=== PATIENT | male | born 1980 | race Native Hawaiian/Other Pacific Islander ===

== ENCOUNTER → 2017-01-10 | Outpatient (CLI) | payer BC ==
--- NOTE | 2017-01-10 18:44 | MR ---
EXAMINATION TYPE: MR thoracic spine wo con DATE OF EXAM: 01/10/2017 5:06 PM COMPARISON: 03/12/2014 HISTORY: Mid back pain Multiplanar MultiSpin echo imaging of the thoracic spine was performed. Disc spaces: No evidence for herniation protrusion or significant degenerative disc disease. Spinal canal: No evidence for canal stenosis. No intrinsic or extrinsic lesion. Thoracic spinal cord: Thoracic spinal cord is of normal caliber and signal. Paraspinal soft tissues: No evidence for paraspinal mass. No destructive lesions seen. Vertebral segments: No evidence for fracture or bony lesion. IMPRESSION: Negative study
--- NOTE | 2017-01-11 08:01 | XR ---
EXAMINATION TYPE: XR thoracic spine complete DATE OF EXAM: 01/10/2017 4:25 PM COMPARISON: NONE HISTORY: Thoracic pain TECHNIQUE: 3 views thoracic spine upright position FINDINGS: There is some degenerative disc change present T9-T10 and T8-9. There are 12 thoracic type vertebral bodies. The pedicles are intact. Spondylosis is present T8-9. Ve rtebral body heights are preserved. IMPRESSION: 1. Degenerative disc changes within the mid to lower thoracic spine at T8-9 and T9-10.
== END | disposition home or self-care (01) ==
LOC: RADMRIMAIN 16:07
PROVIDERS: ATTEND Psychiatry & Neurology Pain Medicine
DX: M47.814 Spondylosis without myelopathy or radiculopathy, thoracic region (principal)
CPT/HCPCS: 72072; 72146

== ENCOUNTER → 2019-05-16 | Outpatient (CLI) | payer BC | END | disposition home or self-care (01) | LOC: LABWHC1 16:03 | PROVIDERS: ATTEND Psychiatry & Neurology Pain Medicine | DX: E66.01 Morbid (severe) obesity due to excess calories (principal) | CPT/HCPCS: 36415; 93005 ==

== ENCOUNTER → 2020-03-03 | Outpatient (CLI) | payer BC, OTHER ==
--- NOTE | 2020-03-03 16:35 | P.HPBAR ---
Bariatric H&P - History & Physicial H&P Date: 03/03/20 History & Physicial: Visit/CC: Patient initial contact: Initial weight: Initial weight in pounds: Height: Initial BMI: Last weight: Current weight: Current weight in pounds: Current BMI: [place] body weight (based on NIH guidelines): Excess body weight loss: The patient is a 39 year-old M who presents for Bariatric Assessment. DATE OF SERVICE: 03/03/2020 CHIEF COMPLAINT: Panniculitis HISTORY OF PRESENT ILLNESS: Nash Rangel is a 39-year-old male who presents in for consultation for medical refractory panniculitis. He has long standing history of panniculitis for over 10 years. He reports painful skin ulcerations and breakdown along his jitendra. No reports of medical treatments and prescriptions. He has pulling sensation along the lower back from his pannus. He has troubles with grooming and hygiene as a result of his pannus. His pannus interferes with his activities of daily living including dressing, bathing, and hygiene. He presents for evaluation for a panniculectomy. He is referred by his neurologist Dr. Beard for severe back pain as well. He just lost another 10 pounds on Adipex. His highest weight is 398 pounds now improved from 2009. He has watched what he ate. 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 At her height of 5 foot 9 inches, his ideal body weight is 168 pounds. His highest weight was 398 pounds, BMI 58.9. Today he comes in weighing 265 pounds. He has lost 133 pounds lifetime. His body mass index is reduced from 58.9 to 39.3. Total percent excess weight loss is 58 %. PAST MEDICAL HISTORY: 1. Morbid obesity due to excess calories, BMI 58.9 2. Chronic lower back pain 3. Hypertension 4. Anxiety 5. Migraines PAST SURGICAL HISTORY: 1. Inguinal hernia repair MEDICATIONS: Home Medications Medication Instructions Recorded Confirmed Gabapentin [Neurontin] 400 mg PO TID 09/09/14 03/03/15 Hydrocodone/Acetaminophen [[place] 1 each PO TID PRN 09/09/14 03/03/15 10-325] Naproxen 500 mg PO DAILY 09/09/14 03/03/15 Previous Rx's Medication Instructions Recorded Hydrocodone/Acetaminophen [[place] 1 each PO Q6HR PRN #20 tab 03/03/15 5-325] Ibuprofen [Motrin] 600 mg PO Q8HR PRN #30 tab 03/03/15 Nystatin 100,000 Unit/gm Powd 1 applic TOPICAL BID #60 powder 03/03/20 [Mycostatin Powder] ALLERGIES: Denies. SOCIAL HISTORY: No past tobacco user. FAMILY HISTORY: Pertinent for morbid obesity. REVIEW OF SYSTEMS: MUSCULOSKELETAL: Reports severe lower back pain from weight of pannus. GASTROINTESTINAL: No reports gastroesophageal reflux disease with Starks's disease. No reports of dumping syndrome. PSYCH: History of anxiety. No suicidal ideation. CONSTITUTIONAL: At her height of 5 foot 9 inches, his ideal body weight is 168 pounds. His highest weight was 398 pounds, BMI 58.9. Today he comes in weighing 265 pounds. He has lost 133 pounds lifetime. His body mass index is reduced from 58.9 to 39.3. Total percent excess weight loss is 58 %. CARDIOVASCULAR: Denies any active hypertensive medications or medications for dyslipidemia. HEENT: No dysphagia. No troubles with vision or hearing. Wears glasses. HEMATOLOGIC: No reports of easy bruising or bleeding. ENDOCRINE: No diabetes. No current thyroid disorder. CARDIOVASCULAR: Denies any heart attack or recent chest pain. RESPIRATORY: Denies obstructive sleep apnea. No reports of asthma. NEURO: Denies any stroke or seizure disorders. Has chronic pain. History of migraines. SKIN: Chronic panniculitis. No skin cancer. PHYSICAL EXAM: VITAL SIGNS: 5 foot 9, 265 pounds. Body mass index 39.3 Vital Signs Temp 98.1 F 03/03/20 16:35 Pulse 49 L 03/03/20 16:35 Resp BP 118/69 03/03/20 16:35 Pulse Ox GENERAL: Well-developed female in no acute distress. ABDOMEN: Pannus over 10+ pounds. Hyperemia consistent moderate panniculitis. Soft, non-distended. HEENT: Hears conversational speech. Moist buccal mucosa. Extraocular movements were grossly intact. No nasal drainage. NECK: Supple without lymphadenopathy. CHEST: Unlabored respirations, equal bilateral excursions. CARDIOVASCULAR: Regular rate and rhythm. 2+ radial pulses. MUSCULOSKELETAL: No clubbing cyanosis or edema. NEURO: No focal or lateralizing signs. Cranial nerves II-12 grossly intact. PSYCH: Appropriate affect. Alert and oriented to person, place, and time. SKIN: Well perfused. Good skin turgor. Moderate pannus. ASSESSMENT: 1. Morbid obesity due to excess calories, BMI 58.9 2. Chronic lower back pain 3. Hypertension 4. Anxiety 5. Migraines PLAN: 1. Will needs pictures for panniculitis. 2. He comes in with 266 pounds from 5'9 height and comorbidities. Bariatric procedures were described for additional weight loss. Recommend weight loss evaluation as he has hypertension. 3. He has not been treated for panniculitis. Recommend Nystatin powder which is prescribed. Past Medical History Past Medical History: Hypertension Additional Past Medical History / Comment(s): MIGRAINE HEADACHE History of Any Multi-Drug Resistant Organisms: None Reported Past Surgical History: Hernia Repair Additional Past Surgical History / Comment(s): testicular surg Past Anesthesia/Blood Transfusion Reactions: No Reported Reaction Past Psychological History: Anxiety Additional Psychological History / Comment(s): HISTORY OF PANIC ATTACKS Smoking Status: Never smoker Past Alcohol Use History: None Reported Past Drug Use History: None Reported Bariatric Checklist Checklist: Plan: Checklist: EGD: 1. Hiatal hernia: 2. H. Pylori: HgbA1c: Vitamin D: Smoking: Never smoker Primary care physician referral: Psychiatry clearance: Cardiology clearance: Sleep study: Diet journal: VTE risk score: VTE risk level: Rehab needs at discharge:
[2020-03-03 16:38] VITALS: BP 118/69; PULSE 49; TEMP 98.1; BMI 39.2
== END | disposition home or self-care (01) ==
LOC: BARWHC3 15:57
PROVIDERS: ATTEND Surgery Plastic and Reconstructive Surgery
DX: E66.01 Morbid (severe) obesity due to excess calories (principal); Z68.43 Body mass index [BMI] 50.0-59.9, adult; I10 Essential (primary) hypertension; G89.29 Other chronic pain; M54.5 Low back pain; F41.9 Anxiety disorder, unspecified; G43.909 Migraine, unspecified, not intractable, without status migrainosus
CPT/HCPCS: 99211

== ENCOUNTER → 2020-07-28 | Outpatient (CLI) | payer OTHER ==
[2020-07-28 15:19] VITALS: BP 154/87; PULSE 102; RESP 16; TEMP 98.3; BMI 44.1
--- NOTE | 2020-07-28 16:04 | P.HPBAR ---
Bariatric H&P - History & Physicial H&P Date: 07/28/20 History & Physicial: Visit/CC: working on criteria Patient initial contact: Initial weight: 135.624 kg Initial weight in pounds: 299.00 Height: 5 ft 9 in Initial BMI: 44.1 Last weight: Current weight: 135.624 kg Current weight in pounds: 299.00 Current BMI: 44.1 [place] body weight (based on NIH guidelines): 72.575 kg Excess body weight loss: 0.0% The patient is a 40 year-old M who presents for Bariatric Assessment. DATE OF SERVICE: 07/28/2020 CHIEF COMPLAINT: Morbid obesity HISTORY OF PRESENT ILLNESS: Nash Rangel is a 40-year-old male who comes in with lifelong morbid obesity. He has tried weight loss on his own where his highest weight was 398 pounds. He has been able to maintain 100 pound weight loss on his own. In fact, he is on Adipex. He comes in looking into the sleeve gastrectomy. He has gained 30 pounds in 4 months. He is on medical supervised weight loss. He comes from family history of morbid obesity. At her height of 5 foot 9 inches, his ideal body weight is 168 pounds. His highest weight was 398 pounds, BMI 58.9. Today he comes in weighing 298 pounds from 265 pounds, 5 months ago. He has gained 33 pounds in 5 months. Lifetime weight loss is 100 pounds. His body mass index is reduced from 58.9 to 44.2. Total percent excess weight loss is 43 % PAST MEDICAL HISTORY: 1. Morbid obesity due to excess calories, BMI 58.9 2. Chronic lower back pain 3. Hypertension 4. Anxiety 5. Migraines PAST SURGICAL HISTORY: 1. Inguinal hernia repair MEDICATIONS: Home Medications Medication Instructions Recorded Confirmed Gabapentin [Neurontin] 400 mg PO TID 09/09/14 03/03/15 Hydrocodone/Acetaminophen [[place] 1 each PO TID PRN 09/09/14 03/03/15 10-325] Naproxen 500 mg PO DAILY 09/09/14 03/03/15 Previous Rx's Medication Instructions Recorded Hydrocodone/Acetaminophen [[place] 1 each PO Q6HR PRN #20 tab 03/03/15 5-325] Ibuprofen [Motrin] 600 mg PO Q8HR PRN #30 tab 03/03/15 Nystatin 100,000 Unit/gm Powd 1 applic TOPICAL BID #60 powder 03/03/20 [Mycostatin Powder] ALLERGIES: Denies. SOCIAL HISTORY: No past tobacco user. FAMILY HISTORY: Pertinent for morbid obesity. REVIEW OF SYSTEMS: MUSCULOSKELETAL: Reports severe lower back pain from weight of pannus. GASTROINTESTINAL: No reports gastroesophageal reflux disease. No reports of dumping syndrome. PSYCH: History of anxiety. No suicidal ideation. CONSTITUTIONAL: At her height of 5 foot 9 inches, his ideal body weight is 168 pounds. His highest weight was 398 pounds, BMI 58.9. CARDIOVASCULAR: Denies any active hypertensive medications or medications for dyslipidemia. HEENT: No dysphagia. No troubles with vision or hearing. Wears glasses. HEMATOLOGIC: No reports of easy bruising or bleeding. ENDOCRINE: No diabetes. No current thyroid disorder. CARDIOVASCULAR: Denies any heart attack or recent chest pain. RESPIRATORY: Denies obstructive sleep apnea. No reports of asthma. NEURO: Denies any stroke or seizure disorders. Has chronic pain. History of migraines. SKIN: Chronic panniculitis. No skin cancer. PHYSICAL EXAM: VITAL SIGNS: 5 foot 9, 298 pounds. Body mass index 44.2 Vital Signs Temp 98.3 F 07/28/20 15:16 Pulse 102 H 07/28/20 15:16 Resp 16 07/28/20 15:16 BP 154/87 07/28/20 15:16 Pulse Ox GENERAL: Well-developed female in no acute distress. ABDOMEN: Pannus over 10+ pounds. Hyperemia consistent moderate panniculitis. Soft, non-distended. HEENT: Hears conversational speech. Moist buccal mucosa. Extraocular movements were grossly intact. No nasal drainage. NECK: Supple without lymphadenopathy. CHEST: Unlabored respirations, equal bilateral excursions. CARDIOVASCULAR: Regular rate and rhythm. 2+ radial pulses. MUSCULOSKELETAL: No clubbing cyanosis or edema. NEURO: No focal or lateralizing signs. Cranial nerves II-12 grossly intact. PSYCH: Appropriate affect. Alert and oriented to person, place, and time. SKIN: Well perfused. Good skin turgor. Moderate pannus. ASSESSMENT: 1. Morbid obesity due to excess calories, BMI 58.9 to 44.2 2. Chronic lower back pain 3. Hypertension 4. Anxiety 5. Migraines PLAN: 1. Surgical options including a band, gastric bypass, sleeve gastrectomy were described in detail. Alternatives such as gastric balloon including duodenal switch were described. She is looking into the gastric bypass. 2. The [place] bariatric surgical collaborative data and outcomes calculator were described with surgical options. 3. Recommend a bariatric metabolic panel to evaluate for micro- including macronutrient deficiencies. 4. For history of daytime somnolence, recommend evaluation and treatment for sleep apnea. 5. Dietary surveillance and counseling was reviewed. Increased protein intake over 65 grams daily advised. 6. Will need cardiac risk assessment. 7. Recommend medical risk assessment. 8. Psych assessment per insurance guidelines. 9. Recommend upper endoscopy. 10. Recommend 12-lead EKG. 11. Recommend esophagram Past Medical History Past Medical History: Hypertension Additional Past Medical History / Comment(s): MIGRAINE HEADACHE History of Any Multi-Drug Resistant Organisms: None Reported Past Surgical History: Hernia Repair Additional Past Surgical History / Comment(s): testicular surg Past Anesthesia/Blood Transfusion Reactions: No Reported Reaction Past Psychological History: Anxiety Additional Psychological History / Comment(s): HISTORY OF PANIC ATTACKS Smoking Status: Never smoker Past Alcohol Use History: None Reported Past Drug Use History: None Reported Surgical - Exam Vital Signs Temp Pulse Resp BP 98.3 F 102 H 16 154/87 07/28/20 15:16 07/28/20 15:16 07/28/20 15:16 07/28/20 15:16 Bariatric Checklist Checklist: Plan: Checklist: EGD: 1. Hiatal hernia: 2. H. Pylori: HgbA1c: Vitamin D: Smoking: Never smoker Primary care physician referral: dr rust Psychiatry clearance: Cardiology clearance: Sleep study: Diet journal: VTE risk score: VTE risk level: Rehab needs at discharge:
== END | disposition home or self-care (01) ==
LOC: BARWHC3 14:35
PROVIDERS: ATTEND Surgery Plastic and Reconstructive Surgery
DX: E66.01 Morbid (severe) obesity due to excess calories (principal); I10 Essential (primary) hypertension; F41.9 Anxiety disorder, unspecified; G89.29 Other chronic pain; M54.5 Low back pain; G43.909 Migraine, unspecified, not intractable, without status migrainosus; Z79.891 Long term (current) use of opiate analgesic; Z79.899 Other long term (current) drug therapy; Z68.43 Body mass index [BMI] 50.0-59.9, adult
CPT/HCPCS: 99211

== ENCOUNTER → 2020-08-03 | Outpatient (CLI) | payer OTHER ==
[2020-08-03 10:22] LABS: HCT 40.6 % (39.0-53.0); HGB 13.5 gm/dL (13.0-17.5); MCHC 33.3 g/dL (31.0-37.0); MCV 84.1 fL (80.0-100.0); Mean Platelet Volume 8.5; Platelet Count 200 k/uL (150-450); RBC 4.83 m/uL (4.30-5.90); RDW 13.4 % (11.5-15.5); WBC 4.7 k/uL (3.8-10.6)
[2020-08-03 15:23] LABS: Hemoglobin A1C 5.4 % (4.0-6.0)
[2020-08-03 15:34] LABS: % Iron Saturation 20.51 (15.00-50.00); African American GFR (CKD) 109.4 (60.0-200.0); Albumin 4.5 g/dL (3.80-4.90); Albumin/Globulin Ratio 2.14 (1.60-3.17); Anion Gap 8.2 mmol/L (4.00-12.00); Calcium 9.2 mg/dL (8.7-10.3); Carbon Dioxide 25.8 mmol/L (21.6-31.8); Chol/HDL Ratio 3.2; Globulin 2.1 g/dL (1.6-3.3); LDL Cholesterol,Calculated 121.4 mg/dL (0.0-131.0); Non-African American GFR(CKD) 94.4 (60.0-200.0); Phosphorus 3.2 mg/dL (2.4-5.1); Potassium 4.7 mmol/L (3.5-5.5); Total Bilirubin 0.5 mg/dL (0.3-1.2); Total Protein 6.6 g/dL (6.2-8.2); VLDL Calculation 23.6 mg/dL (5.00-40.00)
[2020-08-03 15:41] LABS: Ferritin 67.2 ng/mL (22.0-322.0)
[2020-08-03 15:53] LABS: Folate, Serum 19.2 ng/mL
[2020-08-03 18:24] LABS: INR 0.98 (0.90-1.11); Partial Thromboplastin Time 28.1 sec (23.5-31.0); Prothrombin Time 10.6 sec (9.9-11.9)
[2020-08-04 13:57] LABS: Zinc, Serum 88 ug/dL (60-130)
[2020-08-05 07:36] LABS: Vitamin A 51 ug/dL (38-106)
[2020-08-05 12:36] LABS: Vit B1(Thiamine) 72 ug/L (38-122)
== END | disposition home or self-care (01) ==
LOC: LABWHC1 09:01
PROVIDERS: ATTEND Surgery Plastic and Reconstructive Surgery
DX: E89.1 Postprocedural hypoinsulinemia (principal); D50.8 Other iron deficiency anemias; K90.89 Other intestinal malabsorption; E55.9 Vitamin D deficiency, unspecified; K74.1 Hepatic sclerosis; N19 Unspecified kidney failure; K50.90 Crohn's disease, unspecified, without complications; E66.01 Morbid (severe) obesity due to excess calories
CPT/HCPCS: 36415; 80053; 80061; 82306; 82525; 82607; 82728; 82746; 83036; 83540; 83550; 83735; 83970; 84100; 84134; 84255; 84425; 84443; 84590; 84630; 85027; 85610; 85730; 93005

== ENCOUNTER 2020-08-18 08:08 | Day surgery (SDC) | payer OTHER ==
[2020-08-13 14:37] VITALS: BMI 43.9
[~2020-08-18 08:08] MED LIST: LACTATED RINGERS 1,000 ML IV SCH; MIDAZOLAM 2 MG/2 ML VIAL IV PRN; ONDANSETRON 4 MG/2 ML VIAL IVP PRN
[2020-08-18] MEDS ORDERED: LIDOCAINE 1% (10MG/ML) FOR IV START INTRADERMA ONE (08:35)
--- NOTE | 2020-08-18 08:45 | P.GSHP ---
History of Present Illness H&P Date: 08/18/20 CHIEF COMPLAINT: GERD HISTORY OF PRESENT ILLNESS: The patient is a 40-year-old male who presents reports gastroesophageal reflux disease. Upper endoscopy was offered for further evaluation and management. PAST MEDICAL HISTORY: Please see list. PAST SURGICAL HISTORY: Please see list. MEDICATIONS: Please see list. ALLERGIES: Please see list. SOCIAL HISTORY: No illicit drug use FAMILY HISTORY: No reports of Crohn disease or ulcerative colitis. REVIEW OF ORGAN SYSTEMS: CONSTITUTIONAL: No reports of fevers or chills. GI: Denies any blood in stools or constipation. PHYSICAL EXAM: VITAL SIGNS: Stable GENERAL: Well-developed and pleasant in no acute distress. HEENT: No scleral icterus. Extraocular movements grossly intact. Moist buccal mucosa. NECK: Supple without lymphadenopathy. CHEST: Unlabored respirations. Equal bilateral excursions. CARDIOVASCULAR: Regular rate and rhythm. Distal 2+ pulses. ABDOMEN: Soft, nondistended. MUSCULOSKELETAL: No clubbing, cyanosis, or edema. ASSESSMENT: 1. Gastroesophageal reflux disease PLAN: 1. Recommend proceeding with an upper endoscopy Past Medical History Past Medical History: Osteoarthritis (OA) Additional Past Medical History / Comment(s): MIGRAINE HEADACHE, back injury 2010, chronic back pain. History of Any Multi-Drug Resistant Organisms: None Reported Past Surgical History: Hernia Repair Additional Past Surgical History / Comment(s): Testicular surgery. Past Anesthesia/Blood Transfusion Reactions: No Reported Reaction Past Psychological History: Anxiety Additional Psychological History / Comment(s): HISTORY OF PANIC ATTACKS. Smoking Status: Never smoker Past Alcohol Use History: None Reported Past Drug Use History: None Reported - Past Family History Mother Family Medical History: No Reported History Medications and Allergies Home Medications Medication Instructions Recorded Confirmed Type Gabapentin [Neurontin] 400 mg PO TID 09/09/14 08/13/20 History Ibuprofen [Motrin Ib] 200 - 400 mg PO BID 08/13/20 08/13/20 History Phentermine HCl [Adipex-P] 37.5 mg PO DAILY 08/13/20 08/13/20 History oxyCODONE-APAP 5-325MG [Percocet 1 tab PO TID 08/13/20 08/13/20 History 5-325 mg] Allergies Allergy/AdvReac Type Severity Reaction Status Date / Time No Known Allergies Allergy Verified 08/13/20 14:24
[2020-08-18 08:47] VITALS: TEMP 98.4
[2020-08-18] MEDS ORDERED: LIDOCAINE 1% INJ 10MG/ML (20 ML MDV) ONE (09:05)
[2020-08-18] MEDS ORDERED: PROPOFOL 10 MG/ML 20 ML VIAL IV ONE (09:05)
[2020-08-18] MEDS ORDERED: GLYCOPYRROLATE 0.2 MG/ML 2 ML VIAL ONE (09:05)
--- NOTE | 2020-08-18 09:21 | P.PCN ---
Date of Procedure: 08/18/20 Description of Procedure: PREOPERATIVE DIAGNOSIS: Gastroesophageal reflux disease. Morbid obesity. POSTOPERATIVE DIAGNOSIS: Morbid obesity. Gastritis. Gastroesophageal reflux disease. OPERATION: Esophagogastroduodenoscopy with biopsies along antrum. SURGEON: Guera Madrid MD ANESTHESIA: MAC. INDICATIONS: The patient is a 40-year-old male who presents with a history of reflux disease. Benefits and risks of the procedure were described. Informed consent was obtained. DESCRIPTION: The patient was brought into the endoscopy suite and laid in the left lateral decubitus position. An Olympus gastroscope was passed along the posterior oropharynx down to the distal esophagus where the squamocolumnar junction was encountered at 40 cm from the incisors. The stomach was entered and no bile reflux was found. Additional findings are listed below. Biopsies with cold forceps were obtained of the antrum. The first through third portion of the duodenum was examined and unremarkable. Retroflexion of the scope confirmed Hill grade 3 lower esophageal valve. The squamocolumnar junction demonstrated LA grade A erosive esophagitis. The stomach was desufflated. The patient tolerated the procedure well.S FINDINGS: Squamocolumnar junction 40 cm from the incisors. Diaphragmatic hiatus at 40 cm. Hill grade 3 lower esophageal valve. LA grade A erosive esophagitis. No active duodenitis. Chronic gastritis RECOMMENDATIONS: Upper endoscopy as needed. Plan - Discharge Summary Discharge Rx Participant: No New Discharge Prescriptions: Continue Gabapentin [Neurontin] 400 mg PO TID Phentermine HCl [Adipex-P] 37.5 mg PO DAILY oxyCODONE-APAP 5-325MG [Percocet 5-325 mg] 1 tab PO TID Ibuprofen [Motrin Ib] 200 - 400 mg PO BID Discharge Medication List Gabapentin [Neurontin] 400 mg PO TID 09/09/14 [History] Ibuprofen [Motrin Ib] 200 - 400 mg PO BID 08/13/20 [History] Phentermine HCl [Adipex-P] 37.5 mg PO DAILY 08/13/20 [History] oxyCODONE-APAP 5-325MG [Percocet 5-325 mg] 1 tab PO TID 08/13/20 [History] [facility] [place] [place] [facility] [place] [facility] Patient Instructions/Handouts: Diet for Stomach Ulcers and Gastritis (ED), Gastritis (DC) Discharge Disposition: HOME SELF-CARE
[2020-08-18 09:26] VITALS: RESP 16
[2020-08-18 09:37] VITALS: PULSE 73
[2020-08-18 09:47] VITALS: BP 122/80
== END 2020-08-18 09:55 | disposition home or self-care (01) ==
LOC: ORWHC2ENDO 08:08
PROVIDERS: ATTEND Surgery Plastic and Reconstructive Surgery
DX: K29.50 Unspecified chronic gastritis without bleeding (principal); K21.00 Gastro-esophageal reflux disease with esophagitis, without bleeding; K22.10 Ulcer of esophagus without bleeding; G43.909 Migraine, unspecified, not intractable, without status migrainosus; F41.9 Anxiety disorder, unspecified; M19.90 Unspecified osteoarthritis, unspecified site; G89.29 Other chronic pain; E66.01 Morbid (severe) obesity due to excess calories; M54.9 Dorsalgia, unspecified; Z79.1 Long term (current) use of non-steroidal anti-inflammatories (NSAID); Z79.899 Other long term (current) drug therapy; Z98.890 Other specified postprocedural states; Z68.41 Body mass index [BMI] 40.0-44.9, adult
CPT/HCPCS: 88305; 43239; J2001; J2704

== ENCOUNTER → 2020-09-01 | Outpatient (CLI) | payer OTHER ==
[2020-09-01 13:05] VITALS: BP 135/80; PULSE 114; RESP 18; TEMP 98.8
--- NOTE | 2020-09-01 14:05 | P.PN ---
Subjective Progress Note Date: 09/01/20 DATE OF SERVICE: 09/01/2020 CHIEF COMPLAINT: Morbid obesity HISTORY OF PRESENT ILLNESS: Nash Rangel is a 40-year-old male who comes in with lifelong morbid obesity. He has developed essential hypertension and chronic lower back pain as a result of his morbid obesity. He comes in following an upper endoscopy. He is under medical supervised weight loss. He has weight gain. He is in his 5th month of medical supervised weight loss. At her height of 5 foot 9 inches, his ideal body weight is 168 pounds. His highest weight was 398 pounds, BMI 58.9. Today he comes in weighing 303 pounds from 298 pounds, 1 month ago. He has gained 5 pounds in 1 month. Lifetime weight loss is 95 pounds. His body mass index is reduced from 58.9 to 44.9. Total percent excess weight loss is 41 % PAST MEDICAL HISTORY: 1. Morbid obesity due to excess calories, BMI 58.9 2. Chronic lower back pain 3. Hypertension 4. Anxiety 5. Migraines PAST SURGICAL HISTORY: 1. Inguinal hernia repair MEDICATIONS: Home Medications Medication Instructions Recorded Confirmed Gabapentin [Neurontin] 400 mg PO TID 09/09/14 03/03/15 Hydrocodone/Acetaminophen [[place] 1 each PO TID PRN 09/09/14 03/03/15 10-325] Naproxen 500 mg PO DAILY 09/09/14 03/03/15 Previous Rx's Medication Instructions Recorded Hydrocodone/Acetaminophen [[place] 1 each PO Q6HR PRN #20 tab 03/03/15 5-325] Ibuprofen [Motrin] 600 mg PO Q8HR PRN #30 tab 03/03/15 Nystatin 100,000 Unit/gm Powd 1 applic TOPICAL BID #60 powder 03/03/20 [Mycostatin Powder] ALLERGIES: Denies. SOCIAL HISTORY: No past tobacco user. FAMILY HISTORY: Pertinent for morbid obesity. REVIEW OF SYSTEMS: MUSCULOSKELETAL: Reports severe lower back pain from weight of pannus. GASTROINTESTINAL: No reports gastroesophageal reflux disease. No reports of dumping syndrome. PSYCH: History of anxiety. No suicidal ideation. CONSTITUTIONAL: At her height of 5 foot 9 inches, his ideal body weight is 168 pounds. His highest weight was 398 pounds, BMI 58.9. CARDIOVASCULAR: Denies any active hypertensive medications or medications for dyslipidemia. HEENT: No dysphagia. No troubles with vision or hearing. Wears glasses. HEMATOLOGIC: No reports of easy bruising or bleeding. ENDOCRINE: No diabetes. No current thyroid disorder. CARDIOVASCULAR: Denies any heart attack or recent chest pain. RESPIRATORY: Denies obstructive sleep apnea. No reports of asthma. NEURO: Denies any stroke or seizure disorders. Has chronic pain. History of migraines. SKIN: Chronic panniculitis. No skin cancer. PHYSICAL EXAM: VITAL SIGNS: 5 foot 9, 303 pounds. Body mass index 44.9 Vital Signs Temp 98.8 F 09/01/20 12:59 Pulse 114 H 09/01/20 12:59 Resp 18 09/01/20 12:59 BP 135/80 09/01/20 12:59 Pulse Ox GENERAL: Well-developed female in no acute distress. ABDOMEN: Soft, non-distended. Protuberant HEENT: Hears conversational speech. Moist buccal mucosa. Extraocular movements were grossly intact. No nasal drainage. NECK: Supple without lymphadenopathy. CHEST: Unlabored respirations, equal bilateral excursions. CARDIOVASCULAR: Tachycardic. 2+ radial pulses. MUSCULOSKELETAL: No clubbing cyanosis or edema. NEURO: No focal or lateralizing signs. Cranial nerves II-12 grossly intact. PSYCH: Appropriate affect. Alert and oriented to person, place, and time. SKIN: Well perfused. Good skin turgor. Moderate pannus. LABS: Reviewed. Iron is low. AST and ALT is elevated. Total cholesterol is elevated. EKG: Left ventricular hypertrophy, abnormal EGD FINDINGS: Squamocolumnar junction 40 cm from the incisors. Diaphragmatic hiatus at 40 cm. Hill grade 3 lower esophageal valve. LA grade A erosive esophagitis. No active duodenitis. Chronic gastritis Final Pathologic Diagnosis GASTRIC ANTRUM, BIOPSY: Mild chronic gastritis. Helicobacter pylori organisms are not identified on routine H+E sections. ASSESSMENT: 1. Morbid obesity due to excess calories, BMI 58.9 to 44.9 2. Chronic lower back pain 3. Hypertension 4. Anxiety 5. Migraines 6. Vitamin D deficiency. 7. Iron deficiency 8. Elevated liver enzymes 9. Hypercholesterolemia 10. Abnormal EKG 11. Gastroesophageal reflux disease with esophagitis 12. Chronic gastritis. PLAN: 1. Recommend food diary journal. 2. Vitamin D 50,000 units weekly prescribed. 3. Recommend ultrasound of the liver for elevated liver enzymes 4. Recommend cardiology risk assessment for abnormal EKG Objective - Vital Signs Vital signs: Vital Signs Temp 98.8 F 09/01/20 12:59 Pulse 114 H 09/01/20 12:59 Resp 18 09/01/20 12:59 BP 135/80 09/01/20 12:59 Pulse Ox Intake & Output 08/31/20 09/01/20 09/01/20 18:59 06:59 18:59 Weight 137.892 kg
== END | disposition home or self-care (01) ==
LOC: BARWHC3 12:41
PROVIDERS: ATTEND Surgery Plastic and Reconstructive Surgery
DX: E66.01 Morbid (severe) obesity due to excess calories (principal); G89.29 Other chronic pain; M54.5 Low back pain; I10 Essential (primary) hypertension; F41.9 Anxiety disorder, unspecified; G43.909 Migraine, unspecified, not intractable, without status migrainosus; E55.9 Vitamin D deficiency, unspecified; K29.50 Unspecified chronic gastritis without bleeding; K21.00 Gastro-esophageal reflux disease with esophagitis, without bleeding; R94.31 Abnormal electrocardiogram [ECG] [EKG]; E78.00 Pure hypercholesterolemia, unspecified; R74.8 Abnormal levels of other serum enzymes; E61.1 Iron deficiency; Z68.41 Body mass index [BMI] 40.0-44.9, adult; Z79.1 Long term (current) use of non-steroidal anti-inflammatories (NSAID); Z79.899 Other long term (current) drug therapy; Z79.891 Long term (current) use of opiate analgesic
CPT/HCPCS: 99211

== ENCOUNTER → 2021-01-25 | Outpatient (CLI) | payer OTHER ==
[2021-01-25 17:09] LABS: HCT 41.8 % (39.6-50.0); HGB 13.8 g/dL (13.0-17.0); MCH 27.4 pg (27.0-32.0); MCV 83.1 fL (80.0-97.0); Mean Platelet Volume 12.2 fL (9.5-12.2); Platelet Count 188 X 10*3/uL (140-440); RBC 5.03 X 10*6/uL (4.40-5.60); RDW 13.5 % (11.5-14.5); WBC 5.39 X 10*3/uL (4.50-10.00)
[2021-01-25 18:47] LABS: Hemoglobin A1C 5.4 % (4.0-6.0)
[2021-01-26 02:05] LABS: T4, Free (Free Thyroxine) 1.2 ng/dL (0.80-1.80)
[2021-01-26 03:31] LABS: % Iron Saturation 15.61 (15.00-50.00); African American GFR (CKD) 124.3 (60.0-200.0); Albumin 4.4 g/dL (3.80-4.90); BUN/Creat Ratio 14.44 Ratio (12.00-20.00); Globulin 2.2 g/dL (1.6-3.3); Non-African American GFR(CKD) 107.2 (60.0-200.0); Potassium 4.5 mmol/L (3.5-5.5); Total Bilirubin 0.7 mg/dL (0.2-1.2); Total Protein 6.6 g/dL (6.2-8.2)
== END | disposition home or self-care (01) ==
LOC: LABWHC1 09:17
PROVIDERS: ATTEND Psychiatry & Neurology Pain Medicine
DX: Z01.818 Encounter for other preprocedural examination (principal); I51.7 Cardiomegaly; R94.31 Abnormal electrocardiogram [ECG] [EKG]
CPT/HCPCS: 36415; 80053; 82550; 82728; 83036; 83540; 83550; 84439; 84443; 84466; 84481; 85027; 93005

== ENCOUNTER → 2021-02-15 | Outpatient (CLI) | payer OTHER ==
--- NOTE | 2021-02-15 11:45 | XR ---
EXAMINATION TYPE: XR chest 2V DATE OF EXAM: 02/15/2021 COMPARISON: 08/31/2013 HISTORY: SHELLY since Covid in August TECHNIQUE: Frontal and lateral views of the chest are obtained. FINDINGS: Heart size is within normal limits. Low lung volumes. Minimal right basilar linear opaciti es suggestive of atelectasis or scarring. No focal consolidation, pneumothorax or pleural effusion. D egenerative changes of the thoracic spine are mild. IMPRESSION: 1. Minimal linear atelectasis or scarring at the right lung base. No acute pulmonary disease.
== END | disposition home or self-care (01) ==
LOC: RADXRMAIN 11:12
PROVIDERS: ATTEND Physician Assistant Medical
DX: R06.00 Dyspnea, unspecified (principal); Z86.16 Personal history of COVID-19
CPT/HCPCS: 71046

== ENCOUNTER → 2022-10-14 | Outpatient (CLI) | payer OTHER ==
[2022-10-14 16:34] LABS: Follicle Stimulating Hormone 8.7 mIU/mL; Luteinizing Hormone 4.7 mIU/mL
== END | disposition home or self-care (01) ==
LOC: LABWHC1 08:18
PROVIDERS: ATTEND Physician Assistant
DX: R79.89 Other specified abnormal findings of blood chemistry (principal)
CPT/HCPCS: 36415; 83001; 83002; 84403

== ENCOUNTER → 2022-11-01 | Outpatient (CLI) | payer BC ==
[2022-11-01 16:10] VITALS: BP 125/83; PULSE 79; TEMP 98.9; BMI 49.5
--- NOTE | 2022-11-01 16:57 | P.HPBAR ---
Bariatric H&P - History & Physicial H&P Date: 11/01/22 History & Physicial: Visit/CC: new patient Patient initial contact: Initial weight: 135.624 kg Initial weight in pounds: 299.00 Height: 5 ft 7.5 in Initial BMI: 46.1 Last weight: Current weight: 145.603 kg Current weight in pounds: 321.00 Current BMI: 49.5 [place] body weight (based on NIH guidelines): 68.492 kg Excess body weight loss: The patient is a 42 year-old M who presents for Bariatric Assessment. Looking into the sleeve gastrectomy. Highest 325 pounds. He has tried weight loss on his own. He has terrible back pain and broke his back. He stopped going through the gym. He works. He is a assistant tennis coach. He runs and challenges with his students. Parents with troubles with weight and most of his family. His aunt had weight loss surgery. He lost 10 pounds on his own with weight gain. He got down to 260 pounds prior to COVID. No moderate heartburn. No stomach cancer. No blood clots in family. He has snoring. No testing for sleep apnea. He has fatigue. Past Medical History Past Medical History: Hypertension Additional Past Medical History / Comment(s): MIGRAINE HEADACHE History of Any Multi-Drug Resistant Organisms: None Reported Past Surgical History: Hernia Repair Additional Past Surgical History / Comment(s): testicular surg Past Anesthesia/Blood Transfusion Reactions: No Reported Reaction Additional Past Anesthesia/Blood Transfusion Reaction / Comm: woke up once during tooth surgery Past Psychological History: Anxiety Additional Psychological History / Comment(s): HISTORY OF PANIC ATTACKS Smoking Status: Never smoker Past Alcohol Use History: None Reported Past Drug Use History: None Reported Surgical - Exam Vital Signs Temp Pulse BP 98.9 F 79 125/83 11/01/22 16:01 11/01/22 16:01 11/01/22 16:01 Bariatric Checklist Checklist: Plan: Checklist: EGD: 1. Hiatal hernia: 2. H. Pylori: HgbA1c: Vitamin D: Smoking: Never smoker Primary care physician referral: dr rust Psychiatry clearance: Cardiology clearance: Sleep study: Diet journal: VTE risk score: VTE risk level: Rehab needs at discharge:
== END ==
LOC: BARWHC3 15:23
PROVIDERS: ATTEND Surgery Plastic and Reconstructive Surgery
DX: E66.01 Morbid (severe) obesity due to excess calories (principal); Z53.9 Procedure and treatment not carried out, unspecified reason
CPT/HCPCS: 99213